=== PATIENT | female | born 1980 | race Caucasian/White ===

== ENCOUNTER → 2017-06-09 | Day surgery (SDC) | payer OTHER ==
[~2017-06-09] VITALS: Ht 165.1 cm; Wt 70.0 kg
[~2017-06-09] MED LIST: ACETAMINOPHEN 1000 MG/100 ML VIAL IV ONE; ADDE20 PO; APREPITANT 40 MG CAP ONE; CHLORHEXIDINE GLUCONATE 2 % 1 PACK (2 CLOTHS) TOPICAL PRN; DO NOT ADM ANY ANTICOAGULANT DRUGS PRN; ESTROGENS CONJUGATED VAG CREA 15 APPL/30 GM TUBE ONE; INSULIN HUMAN REGULAR 1,000 UNITS/10 ML VIAL SQ PRN; LACTATED RINGER'S 1000 ML IV PRN; METOPROLOL TARTRATE 25 MG TAB PO PRN; MIDAZOLAM HCL 2 MG/2 ML VIAL ONE; ONDANSETRON HCL 4 MG/2 ML VIAL IV PUSH ONE; OXYTOCIN 10 UNIT/ML AMP ONE; POVIDONE IODINE 5% (ANTISEPSIS KIT) 4 APPLICATIONS EACH NARE PRN; PROPOFOL 200 MG/20 ML AMP IV ONE; SODIUM CHLORID 0.9% 500 ML IV PRN; VASOPRESSIN 20 UNITS/ML VIAL (IVTITR) ONE; ceFAZolin 1,000 MG/NS 100 ML IV SCH; fentaNYL CITRATE 250 MCG/5 ML AMP ONE; oxyCODONE/ACETAMINOPHEN 5 MG/325 MG TAB PO PRN
--- NOTE | 2017-06-09 07:34 | PD.OP ---
Operative Report Date of Surgery: Jun 09, 2017 Preoperative Diagnosis: (1) Missed (2) Abnormal uterine bleeding (3) Pelvic and perineal pain Postoperative Diagnosis: (1) Missed (2) Abnormal uterine bleeding (3) Pelvic and perineal pain Procedure: 1. suction 2. D&C Anesthesia: General Surgeon: Chrissie Hayes Plastic Tile Setter(s): OR Staff Operation and Findings: IVF: 500 ml LR + IV antibiotics given prior to surgery EBL: < 50 ml UO: 200 ml Findings: products of conception Specimens: products of conception Complications: none Condition: stable Disposition: PACU Description of procedure: I discussed the risks, benefits and alternatives of the procedure with the patient, her questions were answered, informed consent was signed, the patient verbalized understanding. She was then taken to the operating room with her IV running, was placed in the supine position and was given general anesthesia without difficulties or complications. She was then placed in the dorsal lithotomy position and was prepped and draped in the usual sterile fashion. Attention was turned to the patient's pelvic area. A bivalved speculum was introduced inside the patient's vagina. The anterior aspect of the cervix was grasped with a single tooth tenaculum for manipulation. The cervix was carefully dilated. An 8 mm cannula was used to suction the products of conception and debris. The tissues were sent to pathology. A gentle D&C was done with a sharp curette. Several passes of suction were done to remove rest of debris and blood clots from the patient's uterus and vagina. All the instruments were removed from the patient's uterus. Good hemostasis was noted at the tenaculum site. All instruments were removed from the patient's vagina. The patient tolerated the procedure well. She was successfully awaken from general anesthesia and was transferred to PACU in stable condition. Note: I discussed the surgical findings and surgical procedures with patient's ; his questions were answered; he verbalized understanding. Chrissie Hayes MD Jun 09, 2017 07:34
[2017-06-09 12:11] VITALS: BP 104/64; PULSE 81; RESP 20; O2SAT 99
[2017-06-09 17:15] VITALS: BP 103/64; PULSE 69; RESP 20; TEMP 97.4; O2SAT 100
== END | disposition home or self-care (01) ==
LOC: HSDC 11:13
PROVIDERS: ATTEND Obstetrics & Gynecology
DX: O02.1 Missed abortion (principal); R10.2 Pelvic and perineal pain
CPT/HCPCS: 01965; 59820; 88305; J0131; J2405; J3010; J7120; J8501; J2250; J2590

== ENCOUNTER 2017-09-07 05:24 | Inpatient (IN) | payer OTHER ==
[~2017-09-07] VITALS: Ht 165.1 cm; Wt 73.5 kg
[~2017-09-07 05:24] MED LIST changes: -ACETAMINOPHEN 1000 MG/100 ML VIAL IV ONE; -APREPITANT 40 MG CAP ONE; -CHLORHEXIDINE GLUCONATE 2 % 1 PACK (2 CLOTHS) TOPICAL PRN; -DO NOT ADM ANY ANTICOAGULANT DRUGS PRN; -ESTROGENS CONJUGATED VAG CREA 15 APPL/30 GM TUBE ONE; -INSULIN HUMAN REGULAR 1,000 UNITS/10 ML VIAL SQ PRN; -LACTATED RINGER'S 1000 ML IV PRN; -METOPROLOL TARTRATE 25 MG TAB PO PRN; -MIDAZOLAM HCL 2 MG/2 ML VIAL ONE; -ONDANSETRON HCL 4 MG/2 ML VIAL IV PUSH ONE; -OXYTOCIN 10 UNIT/ML AMP ONE; -POVIDONE IODINE 5% (ANTISEPSIS KIT) 4 APPLICATIONS EACH NARE PRN; -PROPOFOL 200 MG/20 ML AMP IV ONE; -SODIUM CHLORID 0.9% 500 ML IV PRN; -VASOPRESSIN 20 UNITS/ML VIAL (IVTITR) ONE; -ceFAZolin 1,000 MG/NS 100 ML IV SCH; -fentaNYL CITRATE 250 MCG/5 ML AMP ONE; -oxyCODONE/ACETAMINOPHEN 5 MG/325 MG TAB PO PRN
[2017-09-07] MEDS ORDERED: ceFAZolin 2 GM PREMIX 50 ML IV SCH (05:45)
[2017-09-07] MEDS ORDERED: METOPROLOL TARTRATE 25 MG TAB PO PRN (06:00)
[2017-09-07] MEDS ORDERED: LACTATED RINGER'S 1000 ML IV PRN (06:00)
[2017-09-07] MEDS ORDERED: CHLORHEXIDINE GLUCONATE 2 % 1 PACK (2 CLOTHS) TOPICAL PRN (06:00)
[2017-09-07] MEDS ORDERED: POVIDONE IODINE 5% (ANTISEPSIS KIT) 4 APPLICATIONS EACH NARE PRN (06:00)
[2017-09-07] MEDS ORDERED: SODIUM CHLORID 0.9% 500 ML IV PRN (06:00)
[2017-09-07] MEDS ORDERED: APREPITANT 40 MG CAP ONE (07:03)
[2017-09-07] MEDS ORDERED: ACETAMINOPHEN 1000 MG/100 ML 100 ML IV ONE (07:38)
--- NOTE | 2017-09-07 07:47 | PD.OP ---
Operative Report Date of Surgery: Sep 07, 2017 Preoperative Diagnosis: (1) Fibroids, intramural (2) Excessive and frequent menstruation with regular cycle (3) Acute pelvic pain, female Postoperative Diagnosis: (1) Fibroids, intramural (2) Subserous leiomyoma of uterus (3) Excessive and frequent menstruation with regular cycle (4) Acute pelvic pain, female Procedure: Abdominal myomectomy (multiple fibroids) Anesthesia: LILY Surgeon: Chrissie Hayes Lead Die Molder(s): OR Staff Operation and Findings: IVF: 1600 ml + IV antibiotics given prior to surgery UO: 500 ml EBL: 150 ml Findings: 1. multiple large and multiple small fibroids noted in posterior wall of the uterus 2, large subserous myomas noted at the fundus Specimens: fibroids Complications: none Condition: stable Disposition: PACU Description of the procedure: I discussed the risks, benefits and alternatives of the procedure with patient. I answered patient's questions. Informed consent was obtained. The patient was then taken to the operating room with her IV running. She was placed in the supine position. General anesthesia was given without difficulties or complications. The patient was then prepped and draped in the usual sterile fashion. Hahn was placed. A small Pfannenstiel skin incision was then made with the scalpel. The incision was then extended to the fascia with the Bovie. The fascia was incised in the midline with the scalpel and the incision was extended with curved Machado scissors. The fascia was elevated with Praneeth clamps. The rectus muscles were dissected off bluntly. The rectus muscles were in the midline with hemostats and the aid of the Bovie. The peritoneum was identified and entered bluntly. The peritoneal incision was extended with the Bovie. A Iva retractor was carefully placed inside the abdomen. A bladder retractor was used to retract the bladder. The bowel was packed away with moist laparotomy sponges. A bowel refractor was used to keep the bowel packed and away from surgical site. Two large subserous fibroids were noted at the fundus and were carefully removed. Hemostasis was achieved with figure eight stitches of 0-Chromic. Several small subserous fibroids were serially removed from the fundus as well. Good hemostasis was achieved with the Bovie. Next, a very large fibroid was removed from the posterior uterine wall. Multiple small fibroids were noted in the posterior uterine wall as well. A few more were removed to aid in closure; however, many fibroids were left in place due to the large number encountered. The posterior uterine wall was reapproximated with interrupted stitches of 0- chromic. (The endometrium was not entered nor involved in the surgery). A second layer of imbricated stitches was done to obtain excellent hemostasis. Copious irrigation was done. Santa and three sheets of Interseed were placed over the uterus to cover all the incisions. All the instruments and laps were removed from the patient's abdomen. The gutters were copiously irrigated and cleared of all blood clots and debris. Excellent hemostasis was noted. The peritoneum was closed with running stitches of 0-chromic. The rectus muscles were reapproximated with running stitches of 0-Vicryl. The rectus muscles were noted to be hemostatic. The fascia was reapproximated with running stitches of PDS. The subcutaneous tissues were copiously irrigated and reapproximated with running stitches of 2-0 Vicryl. The skin was closed with subcutaneous stitches using Monocryl on a Gomez needle. Mastisol and steri strips were placed over the incision. The patient tolerated the procedure well. She was transferred to recovery room in stable condition. Note: I discussed surgical procedures and surgical findings with patient's mother and . Their questions were answered. They verbalized understanding and agreement to the procedures done. I recommended to wait one year before attempting again and to consult a specialist. Chrissie Hayes MD Sep 07, 2017 07:47
[2017-09-07] MEDS ORDERED: ONDANSETRON HCL 4 MG/2 ML VIAL IV PUSH PRN (08:00)
[2017-09-07] MEDS ORDERED: IBUPROFEN 600 MG TAB PO PRN (08:00)
[2017-09-07] MEDS ORDERED: diphenhydrAMINE HCL 50 MG/ML VIAL IV PUSH PRN (08:00)
[2017-09-07] MEDS ORDERED: diphenhydrAMINE HCL 25 MG CAP PO PRN (08:00)
[2017-09-07] MEDS ORDERED: SODIUM CHLORIDE 0.9% FLUSH 10 ML FLUSH IV FLUSH PRN (08:00)
[2017-09-07] MEDS ORDERED: ONDANSETRON ODT 4 MG TAB SL PRN (08:00)
[2017-09-07] MEDS ORDERED: ZOLPIDEM TARTRATE 5 MG TAB PO PRN (08:00)
[2017-09-07] MEDS ORDERED: PILL SPLITTER OTHER PRN (08:00)
[2017-09-07] MEDS ORDERED: oxyCODONE/ACETAMINOPHEN 5 MG/325 MG TAB PO PRN (08:00)
[2017-09-07] MEDS ORDERED: DOCUSATE SODIUM 100 MG CAP PO PRN (08:00)
[2017-09-07] MEDS ORDERED: DO NOT ADM ANY ANTICOAGULANT DRUGS PRN (09:48)
[2017-09-07] MEDS ORDERED: *MEPERIDINE 25 MG INJ VIAL PERIprocedural Use ONLY ONE (09:51)
[2017-09-07] MEDS: SODIUM CHLORIDE 0.9% FLUSH 10 ML FLUSH IV FLUSH SCH ×2 (10:14→20:20)
[2017-09-07] MEDS: LACTATED RINGER'S 1000 ML INJ 1,000 ML IV SCH ×2 (10:14→17:40)
[2017-09-07] MEDS: ACETAMINOPHEN 1000 MG/100 ML 100 ML IV SCH ×3 (10:34→20:19)
[2017-09-07] MEDS ORDERED: *morphine SULFATE 8 MG/ML PERIprocedure ONLY ONE ×2 (10:38→13:18)
[2017-09-07] MEDS ORDERED: GLYCOPYRROLATE 1 MG/5 ML SYRINGE IV PUSH ONE (12:00)
[2017-09-07] MEDS ORDERED: PHENYLEPH/NS 1000 MCG/10 ML SYR IV ONE (12:00)
[2017-09-07] MEDS ORDERED: ONDANSETRON HCL 4 MG/2 ML VIAL IV PUSH ONE (12:00)
[2017-09-07] MEDS ORDERED: ROCURONIUM INJ 50 MG/5 ML SYRINGE IV PUSH ONE (12:00)
[2017-09-07] MEDS ORDERED: PROPOFOL 200 MG/20 ML AMP IV ONE (12:00)
[2017-09-07] MEDS ORDERED: MORPHINE SULFATE 4 MG/ML INJ IV ONE (12:00)
[2017-09-07] MEDS ORDERED: NEOSTIGMINE 3 MG/3 ML SYR IV ONE (12:00)
[2017-09-07] MEDS ORDERED: MIDAZOLAM HCL 2 MG/2 ML VIAL IV ONE (12:00)
[2017-09-07] MEDS ORDERED: LIDOCAINE HCL 1% PF 5 ML SYRINGE OTHER ONE (12:00)
[2017-09-07] MEDS: oxyCODONE/ACETAMINOPHEN 10 MG/325 MG TAB PO PRN (15:44)
[2017-09-07 16:00] VITALS: BP 133/79; PULSE 72; RESP 19; TEMP 96.9; O2SAT 97
[2017-09-07 20:00] VITALS: BP 119/70; PULSE 67; RESP 20; TEMP 96.3; O2SAT 95
[2017-09-07] MEDS: PANTOPRAZOLE SODIUM 40 MG VIAL IV PUSH SCH (20:20)
[2017-09-07] MEDS: LORazepam 0.5 MG TAB PO PRN (21:45)
[2017-09-08] VITALS: BP 112/57; PULSE 87; RESP 20; TEMP 97.7; O2SAT 95
[2017-09-08] MEDS: LACTATED RINGER'S 1000 ML INJ 1,000 ML IV SCH ×3 (02:40→16:00)
[2017-09-08] MEDS: ACETAMINOPHEN 1000 MG/100 ML 100 ML IV SCH (02:40)
[2017-09-08 06:00] VITALS: BP 111/74; PULSE 81; RESP 20; TEMP 98; O2SAT 95
[2017-09-08 08:00] VITALS: BP 113/65; PULSE 64; RESP 16; TEMP 97.7; O2SAT 96
--- NOTE | 2017-09-08 08:10 | HHI.PR ---
Subjective Remarks Doing well, pain is well controlled, eating well. Objective Vital Signs Vital Signs Date Time Temp Pulse Resp B/P (MAP) Pulse Ox O2 Delivery O2 Flow Rate FiO2 09/08/17 06:00 98.0 81 20 111/74 (86) 95 09/08/17 00:00 97.7 87 20 112/57 (75) 95 09/07/17 20:00 96.3 67 20 119/70 (86) 95 09/07/17 16:00 96.9 72 19 133/79 (97) 97 09/07/17 13:40 97.8 70 19 144/79 (100) 96 Room Air 09/07/17 13:00 64 15 138/83 (101) 96 Room Air 09/07/17 12:00 73 19 139/83 (101) 96 Room Air 09/07/17 11:30 70 20 144/88 (106) 97 Room Air 09/07/17 11:00 66 15 139/85 (103) 96 Room Air 09/07/17 10:45 64 14 135/84 (101) 96 Room Air 09/07/17 10:30 66 15 131/81 (98) 96 Room Air 09/07/17 10:15 67 14 127/80 (96) 95 Room Air 09/07/17 10:00 68 15 121/82 (95) 95 Nasal Cannula 2 09/07/17 09:46 97.4 67 20 124/77 (93) 100 Nasal Cannula 2 I/O 09/07/17 09/07/17 09/07/17 09/08/17 09/08/17 09/08/17 07:00 15:00 23:00 07:00 15:00 23:00 Intake Total 2344 ml 1080 ml 340 ml Output Total 1030 ml 400 ml 350 ml Balance 1314 ml 680 ml -10 ml Intake Oral 100 ml 980 ml 240 ml IV Total 644 ml 100 ml 100 ml Other 1600 ml Output Urine Total 880 ml 400 ml 350 ml Estimated Blood Loss 150 ml # Voids 2 Other Results Laboratory Tests Test 09/08/17 07:55 White Blood Count 11.9 TH/MM3 Red Blood Count 4.13 MIL/MM3 Hemoglobin 12.4 GM/DL Hematocrit 36.7 % Mean Corpuscular Volume 89.0 FL Mean Corpuscular Hemoglobin 30.1 PG Mean Corpuscular Hemoglobin Concent 33.8 % Red Cell Distribution Width 12.9 % Platelet Count 351 TH/MM3 Mean Platelet Volume 7.9 FL Neutrophils (%) (Auto) 78.9 % Lymphocytes (%) (Auto) 14.5 % Monocytes (%) (Auto) 6.0 % Eosinophils (%) (Auto) 0.4 % Basophils (%) (Auto) 0.2 % Neutrophils # (Auto) 9.4 TH/MM3 Lymphocytes # (Auto) 1.7 TH/MM3 Monocytes # (Auto) 0.7 TH/MM3 Eosinophils # (Auto) 0.0 TH/MM3 Basophils # (Auto) 0.0 TH/MM3 CBC Comment DIFF FINAL Differential Comment Vital Signs Date Time Temp Pulse Resp B/P (MAP) Pulse Ox O2 Delivery O2 Flow Rate FiO2 09/08/17 06:00 98.0 81 20 111/74 (86) 95 09/08/17 00:00 97.7 87 20 112/57 (75) 95 09/07/17 20:00 96.3 67 20 119/70 (86) 95 09/07/17 16:00 96.9 72 19 133/79 (97) 97 09/07/17 13:40 97.8 70 19 144/79 (100) 96 Room Air 09/07/17 13:00 64 15 138/83 (101) 96 Room Air 09/07/17 12:00 73 19 139/83 (101) 96 Room Air 09/07/17 11:30 70 20 144/88 (106) 97 Room Air 09/07/17 11:00 66 15 139/85 (103) 96 Room Air 09/07/17 10:45 64 14 135/84 (101) 96 Room Air 09/07/17 10:30 66 15 131/81 (98) 96 Room Air 09/07/17 10:15 67 14 127/80 (96) 95 Room Air 09/07/17 10:00 68 15 121/82 (95) 95 Nasal Cannula 2 09/07/17 09:46 97.4 67 20 124/77 (93) 100 Nasal Cannula 2 Objective Remarks Chest is clear, regular rate and rhythm. Abdomen is soft and non-distended. Incision is clean and dry. Ext no CCE. A/P Assessment and Plan Post Op Day 1 Doing well Home today and return to office in two weeks. Chrissie Hayes MD 17, 2017 08:10
--- NOTE | 2017-09-08 08:14 | HHI.DS ---
Discharge Summary Admission Date Sep 07, 2017 at 05:24 Discharge Date: Sep 08, 2017 Admitting Diagnosis Fibroids Procedures abdominal myomectomy Brief History Patient had multiple large fibroids causing menorrhagia and pelvic pain Significant Findings Laboratory Tests Test 09/07/17 06:12 PE at Discharge WNL Pt Condition on Discharge: Stable Discharge Disposition: Discharge Home Discharge Instructions DIET: Follow Instructions for: As Tolerated, No Restrictions Activities you can perform: Shower Only-No Bath, Pelvic Rest Activities to Avoid: Driving for 24 hrs, Lifting/Bending, Strenuous Activity, Bathing, Sexual Activity Chrissie Hayes MD Sep 08, 2017 08:14
[2017-09-08 09:06] LABS: AUTOMATED NEUTROPHIL # 9.4 TH/MM3 (1.8-7.7); BASOPHIL % 0.2 % (0.0-2.0); EOSINOPHIL % 0.4 % (0.0-4.0); HEMATOCRIT 36.7 % (35.0-46.0); HEMO FLAGS DIFF FINAL; LYMPH % 14.5 % (9.0-44.0); LYMPHOCYTE # 1.7 TH/MM3 (1.0-4.8); MEAN CORPUSCULAR HEMOGLOBIN 30.1 PG (27.0-34.0); MEAN CORPUSCULAR HGB CONC 33.8 % (32.0-36.0); NEUT % 78.9 % (16.0-70.0); PLATELET COUNT 351 TH/MM3 (150-450); RED BLOOD COUNT 4.13 MIL/MM3 (4.00-5.30); RED CELL DISTRIBUTION WIDTH 12.9 % (11.6-17.2); WHITE BLOOD COUNT 11.9 TH/MM3 (4.0-11.0)
[2017-09-08] MEDS: SODIUM CHLORIDE 0.9% FLUSH 10 ML FLUSH IV FLUSH SCH ×2 (09:24→20:34)
[2017-09-08] MEDS: PANTOPRAZOLE SODIUM 40 MG VIAL IV PUSH SCH ×2 (09:24→20:34)
[2017-09-08] MEDS: oxyCODONE/ACETAMINOPHEN 10 MG/325 MG TAB PO PRN ×3 (10:23→20:35)
[2017-09-08 12:00] VITALS: BP 116/72; PULSE 82; RESP 17; TEMP 98.2; O2SAT 96
[2017-09-08 16:00] VITALS: BP 119/73; PULSE 80; RESP 18; TEMP 96.1; O2SAT 96
[2017-09-08 20:00] VITALS: BP 114/71; PULSE 77; RESP 20; TEMP 97; O2SAT 96
[2017-09-08] MEDS: LORazepam 0.5 MG TAB PO PRN (20:35)
[2017-09-09] VITALS: BP 122/75; PULSE 89; RESP 20; TEMP 97.3; O2SAT 98
[2017-09-09] MEDS: LACTATED RINGER'S 1000 ML INJ 1,000 ML IV SCH
[2017-09-09] MEDS: oxyCODONE/ACETAMINOPHEN 10 MG/325 MG TAB PO PRN (06:17)
== END 2017-09-09 08:01 | disposition home or self-care (01) | DRG 743 ==
LOC: HSDI 05:24 → EDSTATUS 07:30 → N07A 14:04
PROVIDERS: ADMIT Obstetrics & Gynecology; ATTEND Obstetrics & Gynecology
PROC: 0UB90ZZ Excision of Uterus, Open Approach (ICD-10-PCS; principal; 2017-09-07 07:30)
DX: D25.2 Subserosal leiomyoma of uterus (principal); N92.0 Excessive and frequent menstruation with regular cycle; F98.8 Other specified behavioral and emotional disorders with onset usually occurring in childhood and adolescence; F12.10 Cannabis abuse, uncomplicated
CPT/HCPCS: 84703; 85025; 86850; 86900; 86901; 88305; 94150; C1765; C9113; J0131; J0690; J2175; J2250; J2270; J2370; J2405; J2710; J3010; J7120; J8501